=== PATIENT | female | born 1965 | race Caucasian/White ===

== ENCOUNTER 2022-09-21 07:03 | Outpatient (CLI) | payer OTHER, SELFPAY ==
--- NOTE | 2022-09-21 07:15 | CRLHL7_ITS ---
For Patients: As a result of the Century Cures Act, medical imaging exams and procedure reports are released immediately into your electronic medical record. You may view this report before your referring provider. If you have questions, please contact your health care provider. Indication: Neck pain, status post cervical fusion 2011 Technique: Multiplanar, multisequence MRI of the cervical spine obtained without contrast. Comparison: Cervical spine x-ray 09/12/2022, MRI cervical spine report 03/11/2009 Findings: Straightening of the cervical lordosis. Anterior metallic spinal fusion changes C5-7. Bony ankylosis across the C5-6 disc space. No acute osseus abnormality. No suspicious marrow lesion. Degenerative disc changes greatest above the surgical fusion. Included posterior fossa structures are unremarkable. Ventral cord deformity from spondylosis at C5-6, without cord compression or cord signal abnormality. No suspicious findings in the prevertebral or paraspinal soft tissues. C2-C3, C3-C4: No significant foraminal or spinal canal stenosis. C4-C5: Disc bulge, uncovertebral/facet arthropathy. No significant foraminal stenosis. Ventral cord deformity without spinal canal stenosis. C5-C6: Surgical changes, uncovertebral/facet arthropathy. No significant foraminal or spinal canal stenosis. C6-C7: Surgical changes, uncovertebral/facet arthropathy. No significant foraminal or spinal canal stenosis. C7-T1: No significant foraminal or spinal canal stenosis. Impression: 1. Mature postoperative changes of anterior metallic spinal fusion from C5-7, with bony ankylosis across the C5-6 disc space. 2. At C4-5, disc bulge contributing to mild ventral cord surface deformity, without cord compression or cord signal abnormality. 3. No evidence of significant neural foraminal or spinal canal stenosis. 4. No acute osseus abnormality. Dictated by Veronica Leo MD @ 09/21/2022 12:57:01 PM (Electronically Signed)
== END 2022-09-21 07:04 | disposition home or self-care (01) ==
LOC: MRI 07:04
PROVIDERS: PCP Family Medicine; Visit Provider Family Medicine
DX: M54.2 Cervicalgia (principal); M43.22 Fusion of spine, cervical region; M50.221 Other cervical disc displacement at C4-C5 level
CPT/HCPCS: 72141

== ENCOUNTER 2023-01-05 15:45 | Outpatient (RCR) | payer OTHER, SELFPAY | END 2023-02-28 15:37 | disposition home or self-care (01) | PROVIDERS: PCP Family Medicine; Visit Provider Family Medicine | DX: M54.2 Cervicalgia (principal); R51.9 Headache, unspecified; Z74.09 Other reduced mobility; Z51.89 Encounter for other specified aftercare | CPT/HCPCS: 97032; 97110; 97112; 97140; 97162 ==

== ENCOUNTER 2023-05-08 10:50 | Outpatient (CLI) | payer OTHER, SELFPAY ==
--- NOTE | 2023-05-08 11:00 | CRLHL7_ITS ---
For Patients: As a result of the Century Cures Act, medical imaging exams and procedure reports are released immediately into your electronic medical record. You may view this report before your referring provider. If you have questions, please contact your health care provider. Indication: Cervical radiculitis Technique: Noncontrast axial CT of the cervical spine with coronal and sagittal reformats. Comparison: MRI cervical spine 09/21/2022 Findings: C5-7 ACDF changes, with mature bony ankylosis across C5-6, and likely partial bony incorporation of the C6-7 interbody spacer. Slight reversal of the cervical lordosis at C4-5, with minor degenerative grade 1 anterolisthesis at C3-4. No acute osseous abnormality. No suspicious findings within the included posterior fossa. Minor biapical pleural parenchymal thickening. C2-C3: No significant neuroforaminal or spinal canal stenosis. C3-C4: Mild anterolisthesis. No significant neuroforaminal or spinal canal stenosis. C4-C5: Shallow disc bulge. Mild uncovertebral arthropathy. No significant neural foraminal or spinal canal stenosis. C5-C6: Postop changes, right central disc-osteophyte complex and right asymmetric uncovertebral arthropathy. Mild right neural foraminal narrowing. No significant left neural foraminal or spinal canal stenosis. C6-C7: Postop changes, left asymmetric uncovertebral arthropathy. Mild left neuroforaminal narrowing. No significant right neural foraminal or spinal canal stenosis. C7-T1: No significant neuroforaminal or spinal canal stenosis. Impression: 1. 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 2. At C5-6, shallow right central disc-osteophyte complex and right asymmetric uncovertebral arthropathy, with mild right neural foraminal narrowing. 3. At C6-7, mild left asymmetric uncovertebral arthropathy with mild left neural foraminal narrowing. Please note that all CT scans at this facility use dose modulation, iterative reconstruction, and/or weight-based dosing when appropriate to reduce radiation dose to as low as reasonably achievable. Dictated by Veronica Leo MD @ 05/08/2023 2:42:01 PM (Electronically Signed)
== END 2023-05-08 10:51 | disposition home or self-care (01) ==
LOC: CT 10:51
PROVIDERS: PCP Family Medicine; Visit Provider Physical Medicine & Rehabilitation Pain Medicine
DX: M54.12 Radiculopathy, cervical region (principal); M50.222 Other cervical disc displacement at C5-C6 level; M43.22 Fusion of spine, cervical region
CPT/HCPCS: 72125

== ENCOUNTER 2023-09-05 08:15 | Outpatient (CLI) | payer OTHER, SELFPAY | END 2023-09-05 08:16 | disposition home or self-care (01) | LOC: LONREF 08:17 | PROVIDERS: PCP Family Medicine; Visit Provider Family Medicine | DX: I10 Essential (primary) hypertension (principal) | CPT/HCPCS: 80048 ==

== ENCOUNTER 2025-06-23 15:04 | Outpatient (CLI) | payer OTHER, SELFPAY | END 2025-06-23 15:05 | disposition home or self-care (01) | PROVIDERS: PCP Family Medicine; Visit Provider Family Medicine | DX: I10 Essential (primary) hypertension (principal) | CPT/HCPCS: 80048; 80061 ==